=== PATIENT | female | born 1955 | race Caucasian/White ===

== ENCOUNTER 2023-05-17 12:51 | Emergency (ER) | payer OTHER, BC ==
[2023-05-17 13:00] VITALS: BMI 24.9
[2023-05-17 15:33] LABS: BASO % 0.3 % (0-2.0); EOS % 0.1 % (0-4.5); HEMATOCRIT 30.4 % (32.4-45.2); HEMOGLOBIN 9.5 GM/dL (10.7-15.3); LYMPH % 10.1 % (8-40); MCH 24.1 pg (25.7-33.7); MCHC 31.1 g/dl (32.0-36.0); MEAN CELL VOLUME 77.6 fl (80-96); MEAN PLT VOLUME 6.8 fl (7.5-11.1); MONO % 8.3 % (3.8-10.2); NEUT % 81.2 % (42.8-82.8); PLATELET COUNT 342 10^3/uL (134-434); RBC 3.92 M/mm3 (3.60-5.2); RDW 18.5 % (11.6-15.6)
[2023-05-17 15:48] LABS: URINE APPEARANCE Error; URINE BILIRUBIN NEGATIVE (NEGATIVE); URINE COLOR YELLOW; URINE GLUCOSE (UA) NEGATIVE (NEGATIVE); URINE KETONE NEGATIVE (NEGATIVE); URINE LEUK ESTERASE NEGATIVE (NEGATIVE); URINE NITRITE NEGATIVE (NEGATIVE); URINE PROTEIN NEGATIVE (NEGATIVE); URINE UROBILINOGEN 0.2 mg/dL (0.2-1.0)
[2023-05-17 15:58] LABS: POTASSIUM 4.4 mmol/L (3.5-5.1)
[2023-05-17 16:00] LABS: ALBUMIN 2.2 g/dl (3.4-5.0); CALCIUM 8.9 mg/dL (8.5-10.1)
[2023-05-17 16:01] LABS: BLOOD UREA NITROGEN 14.5 mg/dL (7-18)
[2023-05-17 16:03] LABS: CREATININE 0.9 mg/dL (0.55-1.3)
[2023-05-17 16:05] LABS: BILIRUBIN,TOTAL 0.5 mg/dL (0.2-1); TOT PROT 6.8 g/dl (6.4-8.2)
[2023-05-18 00:13] VITALS: BP 137/79; PULSE 85; TEMP 102.9
[2023-05-18] MEDS ORDERED: KETOROLAC TROMETHAMINE 15 MG/ML VIAL IVPUSH ONE (00:19)
[2023-05-18] MEDS ORDERED: KETOROLAC TROMETHAMINE 15 MG/ML VIAL ONE (00:25)
[2023-05-18 00:50] VITALS: RESP 20
== END 2023-05-18 00:45 | disposition short-term general hospital (02) ==
LOC: JER 12:51
PROC: 3E033NZ Introduction of Analgesics, Hypnotics, Sedatives into Peripheral Vein, Percutaneous Approach (ICD-10-PCS; principal; 2023-05-18)
DX: R50.9 Fever, unspecified (principal); R10.11 Right upper quadrant pain; K76.89 Other specified diseases of liver; Z20.822 Contact with and (suspected) exposure to COVID-19
CPT/HCPCS: 0241U-QW; 36415; 74177-TC; 80053; 81003; 83690; 85025; 87040; 87086; 93005; 93010; 99285-25; Q9967